=== PATIENT | male | born 1990 | race Caucasian/White ===

== ENCOUNTER 2023-06-20 07:03 | Emergency (ER) | payer OTHER ==
[~2023-06-20] VITALS: Ht 180.3 cm; Wt 82.6 kg
[2023-06-20 07:04] VITALS: BP 138/90; PULSE 112; RESP 20; TEMP 98; O2SAT 98
[2023-06-20] MEDS ORDERED: HYDROcodone/APAP 5/325 MG 1 TAB TAB PO ONE (07:15)
[2023-06-20 07:56] VITALS: O2SAT 98
[2023-06-20 07:59] VITALS: BP 123/77; PULSE 73; RESP 20; TEMP 98.3; O2SAT 99
[2023-06-20] MEDS ORDERED: HYDROcodone/APAP 5/325 MG 1 TAB TAB ONE (08:25)
[2023-06-20] MEDS ORDERED: IBUP-2213 PO ×2 (08:51→08:53)
== END 2023-06-20 09:12 | disposition home or self-care (01) ==
LOC: MED 07:03
DX: S82.142A Displaced bicondylar fracture of left tibia, initial encounter for closed fracture (principal); Z79.1 Long term (current) use of non-steroidal anti-inflammatories (NSAID); W01.0XXA Fall on same level from slipping, tripping and stumbling without subsequent striking against object, initial encounter; Y92.89 Other specified places as the place of occurrence of the external cause; Y93.89 Activity, other specified; Y99.8 Other external cause status
CPT/HCPCS: 29505; 73562; 73590; 99284